=== PATIENT | female | born 1980 | race Caucasian/White ===

== ENCOUNTER 2017-02-15 15:37 | Emergency (ER) | payer OTHER ==
[~2017-02-15] VITALS: Ht 175.3 cm; Wt 85.3 kg
[2017-02-15] MEDS ORDERED: ACETAMINOPHEN 650 MG/20.3 ML LIQUID UDC PO ONE (16:15)
[2017-02-15] MEDS ORDERED: ACETAMINOPHEN 325 MG TABLET ONE (16:25)
--- NOTE | 2017-02-15 16:32 | NUR ---
PT SIGNED WAIVER, TYLENOL ADMINISTERED.
--- NOTE | 2017-02-15 16:59 | NUR ---
MSE COMPLETED. PT D/C'D HOME, ACI GIVEN. PT AMBULATED W/O DIFF/TOOK ALL BELONGINGS.
[2017-02-15 17:00] VITALS: BP 135/74
== END 2017-02-15 17:01 | disposition home or self-care (01) ==
LOC: ER 15:37
DX: S49.91XA Unspecified injury of right shoulder and upper arm, initial encounter (principal); Z88.6 Allergy status to analgesic agent; Z88.8 Allergy status to other drugs, medicaments and biological substances; X58.XXXA Exposure to other specified factors, initial encounter; Y93.67 Activity, basketball; Y99.8 Other external cause status; Y92.89 Other specified places as the place of occurrence of the external cause
CPT/HCPCS: 73030; A4663

== ENCOUNTER 2017-08-25 12:07 | Emergency (ER) | payer OTHER ==
[~2017-08-25] VITALS: Ht 175.3 cm; Wt 87.1 kg
[2017-08-25 13:16] LABS: *URINE HCG, QUAL NEGATIVE (NEGATIVE)
--- NOTE | 2017-08-25 14:21 | NUR ---
Patient discharged to home in stable conditon. Written and verbal after care instructions given. Patient verbalizes understanding of instructions. pt walked out of ER w/ steady gait accompained by family.
[2017-08-25 14:22] VITALS: BP 110/60
== END 2017-08-25 14:23 | disposition home or self-care (01) ==
LOC: ER 12:07
DX: S33.5XXA Sprain of ligaments of lumbar spine, initial encounter (principal); Z88.5 Allergy status to narcotic agent; Z88.6 Allergy status to analgesic agent; W18.39XA Other fall on same level, initial encounter; Y93.89 Activity, other specified; Y92.89 Other specified places as the place of occurrence of the external cause; Y99.8 Other external cause status
CPT/HCPCS: 72100; 84703; A4663

== ENCOUNTER 2017-11-03 18:27 | Emergency (ER) | payer OTHER ==
[~2017-11-03] VITALS: Ht 175.3 cm; Wt 88.5 kg
--- NOTE | 2017-11-03 20:21 | NUR ---
Radiology at bedside for XRAY, waiver signed.
[2017-11-03] MEDS ORDERED: HYDROCODONE/APAP 10-325 MG TABLET PO ONE (20:45)
--- NOTE | 2017-11-03 20:56 | NUR ---
Patient discharged to home in stable conditon. Written and verbal after care instructions given. Patient verbalizes understanding of instructions.
[2017-11-03] MEDS ORDERED: HYDROCODONE/APAP 10-325 MG TABLET ONE (21:05)
== END 2017-11-03 20:56 | disposition home or self-care (01) ==
LOC: ER 18:28
DX: M25.511 Pain in right shoulder (principal); Z88.6 Allergy status to analgesic agent
CPT/HCPCS: 29105; 73030; 99284; A4663

== ENCOUNTER 2018-01-10 14:19 | Emergency (ER) | payer OTHER ==
[~2018-01-10] VITALS: Ht 175.3 cm; Wt 88.5 kg
--- NOTE | 2018-01-10 14:59 | NUR ---
Patient discharged to home in stable conditon. Written and verbal after care instructions given. Patient verbalizes understanding of instructions.pt walks in steady gait. pt not driving
[2018-01-10] MEDS ORDERED: HYDROCODONE/APAP 10-325 MG TABLET PO ONE (15:00)
[2018-01-10] MEDS ORDERED: HYDROCODONE/APAP 10-325 MG TABLET ONE (15:15)
== END 2018-01-10 15:01 | disposition home or self-care (01) ==
LOC: ER 14:21
DX: S40.012A Contusion of left shoulder, initial encounter (principal); Z88.6 Allergy status to analgesic agent; W22.8XXA Striking against or struck by other objects, initial encounter; Y93.89 Activity, other specified; Y92.89 Other specified places as the place of occurrence of the external cause; Y99.8 Other external cause status
CPT/HCPCS: 99283; A4663

== ENCOUNTER 2018-02-20 11:05 | Emergency (ER) | payer OTHER ==
[~2018-02-20] VITALS: Ht 175.3 cm; Wt 87.5 kg
[2018-02-20] MEDS ORDERED: HYDROCODONE/APAP 5-325MG TABLET PO ONE (12:00)
[2018-02-20] MEDS ORDERED: HYDROCODONE/APAP 5-325MG TABLET ONE (12:05)
--- NOTE | 2018-02-20 12:29 | NUR ---
Patient discharged to home in stable conditon. Written and verbal after care instructions given. Patient verbalizes understanding of instructions.
== END 2018-02-20 12:30 | disposition home or self-care (01) ==
LOC: ER 11:05
DX: S93.402A Sprain of unspecified ligament of left ankle, initial encounter (principal); G89.29 Other chronic pain; M54.9 Dorsalgia, unspecified; Z88.6 Allergy status to analgesic agent; Z88.8 Allergy status to other drugs, medicaments and biological substances; X58.XXXA Exposure to other specified factors, initial encounter; Y93.89 Activity, other specified; Y92.89 Other specified places as the place of occurrence of the external cause; Y99.8 Other external cause status
CPT/HCPCS: A4663

== ENCOUNTER 2018-04-06 12:35 | Emergency (ER) | payer OTHER ==
[~2018-04-06] VITALS: Ht 175.3 cm; Wt 88.5 kg
[2018-04-06] MEDS ORDERED: IV NS 1000 ML 1,000 ML IV ONE (13:00)
[2018-04-06] MEDS ORDERED: HYDROCODONE/APAP 5-325MG TABLET PO ONE (13:00)
--- NOTE | 2018-04-06 13:00 | NUR ---
PT IS IN ROOM #2B. DR HARDY EVALUATED THE PT.
[2018-04-06] MEDS ORDERED: DEXAMETHASONE SOD PHOSPHATE 4 MG INJ IM ONE (13:08)
[2018-04-06] MEDS ORDERED: ONDANSETRON IV *ER 4 MG/2 ML VIAL IV ONE (13:15)
[2018-04-06] MEDS ORDERED: HYDROCODONE/APAP 5-325MG TABLET ONE (13:38)
[2018-04-06] MEDS ORDERED: ONDANSETRON 4 MG/2 ML VIAL ONE (13:39)
[2018-04-06] MEDS ORDERED: DEXAMETHASONE SOD PHOSPHATE 10 MG INJ ONE (13:52)
--- NOTE | 2018-04-06 15:36 | NUR ---
PT WAS D/C TO HOME. D/C INSTRUCTIONS GIVEN TO THE PT.
[2018-04-06 15:37] VITALS: BP 129/76
== END 2018-04-06 15:38 | disposition home or self-care (01) ==
LOC: ER 12:35
DX: S33.5XXA Sprain of ligaments of lumbar spine, initial encounter (principal); Z88.6 Allergy status to analgesic agent; Z88.8 Allergy status to other drugs, medicaments and biological substances; X58.XXXA Exposure to other specified factors, initial encounter; Y93.89 Activity, other specified; Y92.89 Other specified places as the place of occurrence of the external cause; Y99.8 Other external cause status
CPT/HCPCS: 72100; A4663; J1100; J2405; J7030

== ENCOUNTER 2018-05-12 20:21 | Emergency (ER) | payer OTHER ==
[~2018-05-12] VITALS: Ht 175.3 cm; Wt 88.5 kg
--- NOTE | 2018-05-12 20:40 | NUR ---
Xray at bedside.
[2018-05-12] MEDS: HYDROCODONE/APAP 10-325 MG TABLET PO ONE (20:56)
--- NOTE | 2018-05-12 21:02 | NUR ---
Patient discharged to home in stable conditon. Pt's left ankle wrapped in shady wrap. Written and verbal after care instructions given. Patient verbalizes understanding of instructions. Patient ambulated out of ER, VSS, all belongings taken, no acute signs of distress.
[2018-05-12 21:04] VITALS: BP 136/78
== END 2018-05-12 21:05 | disposition home or self-care (01) ==
LOC: ER 20:24
DX: S93.402A Sprain of unspecified ligament of left ankle, initial encounter (principal); X50.1XXA Overexertion from prolonged static or awkward postures, initial encounter; Y93.89 Activity, other specified; Y92.89 Other specified places as the place of occurrence of the external cause; Y99.8 Other external cause status; Z88.6 Allergy status to analgesic agent; Z88.8 Allergy status to other drugs, medicaments and biological substances
CPT/HCPCS: 73610; A4663

== ENCOUNTER 2018-06-07 12:09 | Emergency (ER) | payer OTHER ==
[~2018-06-07] VITALS: Ht 175.3 cm; Wt 88.5 kg
--- NOTE | 2018-06-07 12:42 | NUR ---
Pt resting in bed, watching bedside tv,NAD noted. Awaiting to be seen by MD.
--- NOTE | 2018-06-07 12:48 | NUR ---
Dr Santana at the bedside for MSE.
[2018-06-07] MEDS ORDERED: DEXAMETHASONE SOD PHOSPHATE 4 MG INJ IM ONE (13:00)
[2018-06-07] MEDS ORDERED: DEXAMETHASONE SOD PHOSPHATE 10 MG INJ ONE (13:02)
[2018-06-07 13:04] VITALS: BP 112/80
--- NOTE | 2018-06-07 13:11 | NUR ---
Patient discharged to home in stable conditon. Written and verbal after care instructions given. Patient verbalizes understanding of instructions. Pt left ER w/ steady gait.
== END 2018-06-07 13:12 | disposition home or self-care (01) ==
LOC: ER 12:09
DX: S33.5XXA Sprain of ligaments of lumbar spine, initial encounter (principal); Z88.6 Allergy status to analgesic agent; Z88.8 Allergy status to other drugs, medicaments and biological substances; X50.0XXA Overexertion from strenuous movement or load, initial encounter; Y93.89 Activity, other specified; Y92.89 Other specified places as the place of occurrence of the external cause; Y99.8 Other external cause status
CPT/HCPCS: A4663; J1100

== ENCOUNTER 2018-07-09 11:42 | Emergency (ER) | payer OTHER ==
[~2018-07-09] VITALS: Ht 175.3 cm; Wt 89.8 kg
[2018-07-09] MEDS ORDERED: predniSONE 20 MG TABLET PO ONE (12:30)
[2018-07-09] MEDS ORDERED: ACETAMINOPHEN ES 500 MG TABLET PO ONE (12:30)
[2018-07-09] MEDS ORDERED: ACETAMINOPHEN ES 500 MG TABLET ONE ×2 (12:38)
[2018-07-09] MEDS ORDERED: predniSONE 20 MG TABLET ONE (12:38)
--- NOTE | 2018-07-09 12:48 | NUR ---
Pt was not found in room 4b, per ER admitting pt was seen walking out of the ER through the main entrance.
--- NOTE | 2018-07-09 12:55 | NUR ---
Tylenol and Prednisone were wasted per protocol, unable to waste in Pyxis because the pt was already departed from [facility].
== END 2018-07-09 12:50 | disposition home or self-care (01) ==
LOC: ER 11:46
DX: M25.512 Pain in left shoulder (principal); Z88.6 Allergy status to analgesic agent; Z88.8 Allergy status to other drugs, medicaments and biological substances
CPT/HCPCS: 99281; A4663; A9150 ×2; J7512

== ENCOUNTER 2018-08-18 21:23 | Emergency (ER) | payer OTHER ==
[~2018-08-18] VITALS: Ht 175.3 cm; Wt 85.7 kg
[2018-08-18] MEDS ORDERED: TRAMADOL HCL 50 MG TABLET PO ONE (22:15)
[2018-08-18] MEDS ORDERED: TRAMADOL HCL 50 MG TABLET ONE (22:18)
--- NOTE | 2018-08-18 23:12 | NUR ---
Patient discharged to home in stable conditon. Written and verbal after care instructions given. Patient verbalizes understanding of instructions. Pt ambulated out of ER with ankle stirrup in place and crutches. Crutches provided with training and return demonstration. Pt has to drive her home. All belongings with pt. VSS. NAD noted.
[2018-08-18 23:15] VITALS: BP 114/64
== END 2018-08-18 23:15 | disposition home or self-care (01) ==
LOC: ER 21:25
DX: S93.402A Sprain of unspecified ligament of left ankle, initial encounter (principal); G89.4 Chronic pain syndrome; Z88.6 Allergy status to analgesic agent; Z88.8 Allergy status to other drugs, medicaments and biological substances; X50.1XXA Overexertion from prolonged static or awkward postures, initial encounter; Y93.89 Activity, other specified; Y92.89 Other specified places as the place of occurrence of the external cause; Y99.8 Other external cause status
CPT/HCPCS: 73610; 99284; A4663

== ENCOUNTER 2019-02-23 11:13 | Emergency (ER) | payer SELFPAY ==
[~2019-02-23] VITALS: Ht 175.3 cm; Wt 88.5 kg
--- NOTE | 2019-02-23 11:24 | NUR ---
Dr Vela at the bedside for MSE.
[2019-02-23 11:45] LABS: *URINE HCG, QUAL NEGATIVE (NEGATIVE)
--- NOTE | 2019-02-23 12:31 | NUR ---
Patient eloped from facility. ER physician notified.
== END 2019-02-23 12:32 | disposition left against medical advice (07) ==
LOC: ER 11:13
DX: M54.5 Low back pain (principal); Z88.5 Allergy status to narcotic agent; Z88.8 Allergy status to other drugs, medicaments and biological substances; W10.9XXA Fall (on) (from) unspecified stairs and steps, initial encounter; Y93.89 Activity, other specified; Y92.89 Other specified places as the place of occurrence of the external cause; Y99.8 Other external cause status
CPT/HCPCS: 72100; 84703; A4663

== ENCOUNTER 2019-04-20 17:12 | Emergency (ER) | payer MEDICAID ==
[~2019-04-20] VITALS: Ht 175.3 cm; Wt 88.5 kg
--- NOTE | 2019-04-20 17:20 | NUR ---
DOE ORTIZ AT BEDSIDE FOR MSE.
--- NOTE | 2019-04-20 17:50 | NUR ---
DOE ORTIZ AT BEDSIDE FOR PT UPDATE.
[2019-04-20] MEDS ORDERED: ACETAMINOPHEN ES 500 MG TABLET ONE (17:58)
[2019-04-20] MEDS ORDERED: ACETAMINOPHEN ES 500 MG TABLET PO ONE (18:00)
--- NOTE | 2019-04-20 18:15 | NUR ---
Patient eloped from facility. ER physician notified.
== END 2019-04-20 18:17 | disposition left against medical advice (07) ==
LOC: ER 17:12
DX: S93.402A Sprain of unspecified ligament of left ankle, initial encounter (principal); Z88.5 Allergy status to narcotic agent; Z88.8 Allergy status to other drugs, medicaments and biological substances; X50.1XXA Overexertion from prolonged static or awkward postures, initial encounter; Y93.66 Activity, soccer; Y92.89 Other specified places as the place of occurrence of the external cause; Y99.8 Other external cause status
CPT/HCPCS: 73590; 73610; A4663; A9150

== ENCOUNTER 2019-09-29 20:45 | Emergency (ER) | payer SELFPAY ==
[~2019-09-29] VITALS: Ht 175.3 cm; Wt 88.5 kg
[2019-09-29] MEDS ORDERED: HYDROCODONE/APAP 5-325MG TABLET ONE (21:03)
--- NOTE | 2019-09-29 21:06 | NUR ---
Patient discharged to home in stable conditon. Written and verbal after care instructions given. Patient verbalizes understanding of instructions. Ambulated from ER with stable gait. All belongings with patient. patient will be driven home by daughter in private vehicle.
[2019-09-29 21:07] VITALS: BP 133/73
[2019-09-29] MEDS ORDERED: HYDROCODONE/APAP 5-325MG TABLET PO ONE (21:15)
== END 2019-09-29 21:08 | disposition home or self-care (01) ==
LOC: ER 20:48
DX: G89.29 Other chronic pain (principal); M54.5 Low back pain; Z88.8 Allergy status to other drugs, medicaments and biological substances; Z88.5 Allergy status to narcotic agent
CPT/HCPCS: A4663

== ENCOUNTER 2021-04-22 17:37 | Emergency (ER) | payer MEDICAID, OTHER ==
[~2021-04-22] VITALS: Ht 175.3 cm; Wt 87.1 kg
--- NOTE | 2021-04-22 17:45 | NUR ---
Patient discharged to home in stable condition. Written and verbal after care instructions given. Patient verbalizes understanding of instructions. Stressed follow up or return to ER for worsening s/s. Patient left in a hurry with her prescription and did not take her pain medication prescribed. No SOB or signs of distress noted.
--- NOTE | 2021-04-22 18:36 | NUR ---
Pt resting in bed, awaiting to be seen by SUJEY ORTIZ noted.
--- NOTE | 2021-04-22 19:05 | NUR ---
Received report from day shift nurse. Patient is resting comfortably, no outward signs of severe pain, no complaints of SOB or signs of distress. Patient A/O x4.
[2021-04-22] MEDS ORDERED: HYDR-3980 PO (19:38)
[2021-04-22] MEDS ORDERED: OXYCODONE/APAP 5-325 MG TABLET PO ONE (19:45)
[2021-04-22 19:48] VITALS: BP 140/73
== END 2021-04-22 19:43 | disposition home or self-care (01) ==
LOC: ER 17:39
DX: M54.5 Low back pain (principal); G89.4 Chronic pain syndrome; Z88.6 Allergy status to analgesic agent; Z88.5 Allergy status to narcotic agent
CPT/HCPCS: A4663

== ENCOUNTER 2021-05-22 14:33 | Emergency (ER) | payer OTHER ==
[~2021-05-22] VITALS: Ht 175.3 cm; Wt 87.1 kg
[~2021-05-22 14:33] MED LIST: HYDR-3980 PO
--- NOTE | 2021-05-22 14:53 | NUR ---
Patient discharged to home in stable condition with steady gait. Written and verbal after care instructions given to patient. Patient verbalized understanding & compliance of instructions. Stressed follow up with primary doctor or return to ER for worsening s/s.
== END 2021-05-22 14:58 | disposition home or self-care (01) ==
LOC: ER 14:33
DX: G89.4 Chronic pain syndrome (principal); M54.5 Low back pain; Z76.0 Encounter for issue of repeat prescription; Z88.6 Allergy status to analgesic agent; Z88.5 Allergy status to narcotic agent
CPT/HCPCS: A4663

== ENCOUNTER 2021-06-13 15:33 | Emergency (ER) | payer OTHER ==
[~2021-06-13] VITALS: Ht 175.3 cm; Wt 90.7 kg
--- NOTE | 2021-06-13 16:00 | NUR ---
Dr Hanna at the bedside for MSE.
[2021-06-13] MEDS ORDERED: HYDROCODONE/APAP 10-325 MG TABLET PO ONE (16:15)
[2021-06-13 16:20] VITALS: BP 128/77
--- NOTE | 2021-06-13 16:20 | NUR ---
Patient discharged to home in stable condition. Written and verbal after care instructions given. Patient verbalizes understanding of instructions. Stressed follow up or return to ER for worsening s/s.
[2021-06-13] MEDS ORDERED: HYDROCODONE/APAP 10-325 MG TABLET ONE (16:23)
== END 2021-06-13 16:21 | disposition home or self-care (01) ==
LOC: ER 15:34
DX: M54.9 Dorsalgia, unspecified (principal); G89.4 Chronic pain syndrome; Z88.6 Allergy status to analgesic agent; Z88.5 Allergy status to narcotic agent
CPT/HCPCS: A4663

== ENCOUNTER 2021-06-27 15:32 | Emergency (ER) | payer OTHER ==
[~2021-06-27] VITALS: Ht 162.6 cm; Wt 87.1 kg
[2021-06-27] MEDS ORDERED: HYDR-3980 PO ×2 (18:06→18:08)
--- NOTE | 2021-06-27 18:35 | NUR ---
Dr Sparks at the bedside for MSE.
[2021-06-27 18:58] VITALS: BP 120/59
== END 2021-06-27 18:58 | disposition home or self-care (01) ==
LOC: ER 15:34
DX: M54.5 Low back pain (principal); G89.4 Chronic pain syndrome
CPT/HCPCS: A4663

== ENCOUNTER 2021-07-31 08:49 | Emergency (ER) | payer OTHER ==
[~2021-07-31] VITALS: Ht 175.3 cm; Wt 86.2 kg
[2021-07-31] MEDS ORDERED: HYDR-4209 PO (09:10)
[2021-07-31] MEDS ORDERED: CYCL5TAB PO (09:10)
[2021-07-31] MEDS ORDERED: HYDROCODONE/APAP 5-325MG TABLET PO ONE (09:15)
[2021-07-31] MEDS ORDERED: CYCLOBENZAPRINE HCL 10 MG TABLET PO ONE (09:15)
[2021-07-31] MEDS ORDERED: CYCLOBENZAPRINE HCL 10 MG TABLET ONE (09:20)
[2021-07-31] MEDS ORDERED: HYDROCODONE/APAP 5-325MG TABLET ONE (09:20)
== END 2021-07-31 09:29 | disposition home or self-care (01) ==
LOC: ER 08:49
DX: M51.27 Other intervertebral disc displacement, lumbosacral region (principal); G89.4 Chronic pain syndrome; Z88.6 Allergy status to analgesic agent
CPT/HCPCS: A4663

== ENCOUNTER 2021-08-16 16:55 | Emergency (ER) | payer OTHER ==
[~2021-08-16] VITALS: Ht 175.3 cm; Wt 87.1 kg
[~2021-08-16 16:55] MED LIST changes: +CYCL5TAB PO; +HYDR-4209 PO
[2021-08-16] MEDS ORDERED: HYDROCODONE/APAP 5-325MG TABLET PO ONE (17:45)
[2021-08-16] MEDS ORDERED: HYDROCODONE/APAP 5-325MG TABLET ONE (17:58)
[2021-08-16] MEDS ORDERED: HYDR-3980 PO (18:19)
== END 2021-08-16 19:01 | disposition home or self-care (01) ==
LOC: ER 16:58
DX: M54.5 Low back pain (principal); G89.4 Chronic pain syndrome; Z88.6 Allergy status to analgesic agent; Z88.5 Allergy status to narcotic agent
CPT/HCPCS: A4663

== ENCOUNTER 2021-08-22 22:04 | Emergency (ER) | payer OTHER ==
[~2021-08-22] VITALS: Ht 172.7 cm; Wt 87.1 kg
--- NOTE | 2021-08-22 22:30 | NUR ---
Patient eloped from facility. ER physician notified.
== END 2021-08-22 22:30 | disposition left against medical advice (07) ==
LOC: ER 22:05
DX: Z53.21 Procedure and treatment not carried out due to patient leaving prior to being seen by health care provider (principal)

== ENCOUNTER 2021-09-18 15:31 | Emergency (ER) | payer OTHER ==
[~2021-09-18] VITALS: Ht 175.3 cm; Wt 90.7 kg
--- NOTE | 2021-09-18 15:57 | NUR ---
Patient was seen by MD. CLEMENTE and follow up instructions given and explained to patient who states she understands all instructions
== END 2021-09-18 15:59 | disposition home or self-care (01) ==
LOC: ER 15:32
DX: M54.50 Low back pain, unspecified (principal); G89.4 Chronic pain syndrome
CPT/HCPCS: A4663

== ENCOUNTER 2022-01-15 16:58 | Emergency (ER) | payer OTHER ==
[~2022-01-15] VITALS: Ht 175.3 cm; Wt 88.5 kg
[2022-01-15] MEDS ORDERED: HYDROCODONE/APAP 5-325MG TABLET PO ONE (17:15)
--- NOTE | 2022-01-15 17:29 | NUR ---
Patient was discharged to home in stable condition. Patient was seen walking with brisk steady gait. Written and verbal after care instructions was given to patient. Patient verbalized understanding and compliance of instructions. Stressed follow up with primary doctor ,pain management doctor and/or ortho spine doctor or return to ER for worsening of s/s. Per Niesha alert, this patient was seen in 8 different [facility] since Jan. Today is only Jan.
[2022-01-15] MEDS ORDERED: HYDROCODONE/APAP 5-325MG TABLET ONE (17:30)
== END 2022-01-15 17:27 | disposition home or self-care (01) ==
LOC: ER 17:02
DX: G89.29 Other chronic pain (principal); M54.50 Low back pain, unspecified; Z88.8 Allergy status to other drugs, medicaments and biological substances
CPT/HCPCS: A4663

== ENCOUNTER 2022-05-28 19:43 | Emergency (ER) | payer SELFPAY | END 2022-05-28 21:33 | disposition left against medical advice (07) | LOC: ER 19:53 | DX: Z53.21 Procedure and treatment not carried out due to patient leaving prior to being seen by health care provider (principal) ==

== ENCOUNTER 2022-08-07 21:00 | Emergency (ER) | payer OTHER ==
[~2022-08-07] VITALS: Ht 175.3 cm; Wt 88.5 kg
--- NOTE | 2022-08-08 00:45 | NUR ---
Patient was called to be placed in bed but was not present in the waiting room or outside of ER.
--- NOTE | 2022-08-08 01:24 | NUR ---
Patient was called to be placed in room but patient was not present in the waiting room or outside of ER. PATIENT WAS TRIAGED BUT NOT SEEN BY ERMD.
== END 2022-08-08 01:30 | disposition left against medical advice (07) ==
LOC: ER 21:01
DX: Z53.21 Procedure and treatment not carried out due to patient leaving prior to being seen by health care provider (principal)
CPT/HCPCS: A4663

== ENCOUNTER 2022-08-08 05:44 | Emergency (ER) | payer SELFPAY ==
--- NOTE | 2022-08-08 06:30 | NUR ---
Patient was called to mbe triaged but was not present in the waiting room or outside of ER.
--- NOTE | 2022-08-08 07:03 | NUR ---
Patient called to be triaged but was not present in the waiting room. PATIENT WAS NOT TRIAGED OR SEEN BY ERMD.
== END 2022-08-08 07:04 | disposition left against medical advice (07) ==
LOC: ER 05:48
DX: Z53.21 Procedure and treatment not carried out due to patient leaving prior to being seen by health care provider (principal)

== ENCOUNTER 2022-08-09 18:14 | Emergency (ER) | payer MEDICAID ==
[~2022-08-09] VITALS: Ht 175.3 cm; Wt 88.5 kg
== END 2022-08-09 19:37 | disposition home or self-care (01) ==
LOC: ER 18:14
DX: M54.50 Low back pain, unspecified (principal); G89.4 Chronic pain syndrome; Z88.6 Allergy status to analgesic agent; Z88.5 Allergy status to narcotic agent
CPT/HCPCS: A4663